=== PATIENT | male | born 1990 | race Caucasian/White ===

== ENCOUNTER 2024-09-21 08:26 | Emergency (ER) | payer SELFPAY ==
[2024-09-21] VITALS (15 sets, daily range): BP systolic 127–137; BP diastolic 92–104; PULSE 79–100; RESP 11–20; TEMP 36.5; O2SAT 95–100
--- NOTE | ~2024-09-21 | CT_ITS ---
EXAMINATION: CT brain wo con DATE: 09/21/2024 09:05 INDICATION: Dizziness with seizures TECHNIQUE: Computed tomography (CT) of the head was performed without intravenous contrast. Sagittal and coronal reconstructions were performed. The mA was adjusted according to patient size. Iterative reconstruction technique was employed. The dose-length product was 605.33 mGy-cm. COMPARISON: None FINDINGS: Large region of encephalomalacia centered at the left parietal lobe involving most of the posterior l eft frontal lobe. There is a large loculated cystic lesion with a single thin curvilinear internal se ptation filling the region of encephalomalacia. There is no evident aguilera matter lining the region of encephalomalacia to suggest schizencephaly. The cystic lesion measures 7.7 cm AP and 7.5 x 3.9 cm max imal transaxial dimensions in the coronal plane. The cystic lesion is chronic with chronic remodeling of the overlying calvarium which appears thickened with scalloped margins along the inner table. The re is a thin septation with no cerebral tissue between portions of the left lateral ventricle and the cystic lesion. No acute intracranial hemorrhage, acute infarction or abnormal extra axial fluid jann ection. There is mild ex vacuo dilation at the trigonal region of the left lateral ventricle. Ventric les are otherwise normal and symmetric. No soft tissue masses identified. The orbits, paranasal sinus es and mastoid air cells are normal. IMPRESSION: 1. No acute intracranial process. 2. 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 Correlate with clinical history. Reviewed, dictated and finalized at location A. IMPRESSION: 1. No acute intracranial process. 2. 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 Correlate with clinical history.
--- NOTE | 2024-09-21 08:29 | ED.DIZZY ---
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 The patient does not have vertigo. -- Unable to focus. His image keeps moving . no headache. No focal neuro deficits. No speech difficulty. No headache. No chest pain or shortness of breath no recent seizures noted. The patient is on Lamictal. MD elicited complaint: dizziness and lightheadedness Onset (ago): hour(s) ( 1 hour) Timing: sudden onset Severity: mild Description: lightheadedness History of similar symptoms: Yes Exacerbating factors: nothing Relieving factors: nothing Associated symptoms: denies other symptoms Related Data Allergies Allergy/AdvReac Type Severity Reaction Status Date / Time levetiracetam (From [facility]) Allergy Severe panic Verified 06/21/24 09:51 attack Review of Systems Review of Systems: All systems reviewed & are unremarkable except as noted in HPI and below Constitutional: Constitutional: Reports as per HPI and Reports no additional constitutional complaints Eyes: Eyes: Reports as per HPI and Reports no additional eye complaints Comments: unable to focus. ENT: Reports system reviewed and no additional complaints, except as documented and Reports as per HPI Cardiovascular: Cardiovascular: Reports as per HPI and Reports no additional cardiovascular complaints Respiratory: Respiratory: Reports as per HPI and Reports no additional respiratory complaints Gastrointestinal: Gastrointestinal: Reports as per HPI and Reports no additional gastrointestinal complaints Genitourinary: Genitourinary: Reports no additional male genitourinary complaints and Reports as per HPI Musculoskeletal: Musculoskeletal: Reports no additional musculoskeletal complaints and Reports as per HPI Integumentary/Breasts: Skin/Breast: Reports system reviewed and no additional complaints, except as docu and Reports as per HPI Neurologic: Reports system reviewed and no additional complaints, except as documented and Reports as per HPI Psychiatric: Psychiatric: Reports no additional psychiatric complaints and Reports as per HPI Endocrine: Endocrine: Reports no additional endocrine complaints and Reports as per HPI Hematologic/Lymphatic: Hematologic/Lymphatic: Reports no additional hematologic/lymphatic complaints and Reports as per HPI Allergic/Immunologic: Allergic/Immunologic: Reports no additional allergic/immunologic complaints and Reports as per HPI [facility] Social History Social History Smoking status: Never smoker Tobacco type: cigars Second hand tobacco smoke exposure: No Alcohol intake: current Substance use: never Do You Feel Safe in your Home?: Yes Lack of Transportation: No Lack of Food: Never True Current Housing: I Have Housing Concerned About Future Housing: No Difficulty Paying Gas/Electric Bills: No Difficulty Paying for Meds: No Currently Unemployed: No Living arrangements: alone Gender identity (if verbalized by the patient): Male Spiritual care concerns: No Exam Narrative: Not orthostatic Const: General: healthy appearing and no acute distress Nutritional Appearance: well nourished Orientation/consciousness: patient oriented x3 Limitations: no limitations HENMT: Head: normal to inspection Ears: TM's normal bilaterally Face/Nose/Sinus: Normal external nose present Face and sinus: normal facial exam Mouth: Yes Normal oral and palatal mucosa present Throat: posterior oropharynx normal Eyes: Conjunctivae: conjunctivae normal Pupils: Equal, round and reactive pupils present EOM: EOMs intact bilaterally Direct Ophthalmoscopy: no photophobia Neck: Neck: normal visual inspection, no lymphadenopathy and no meningeal signs Chest: Chest palpation & inspection: normal inspection of the chest Resp: Effort & Inspection: normal respiratory effort Auscultation: clear to auscultation bilaterally Cardio: Rate: regular rate Rhythm: regular rhythm GI: GI Palp: Yes Soft to palpation Auscultation: normal bowel sounds Other: no tenderness/ rigidity / rebound. : General: Yes no CVA tenderness Back/Spine/Pelvis: Back: no CVA tenderness Skin: General skin exam: normal color Rashes: no rashes Wounds: no wounds Neuro: General: patient oriented x3, moves all extremities, no meningeal signs and no focal motor deficits Cranial nerves: Yes Nystagmus not present Speech: normal speech Extrem: General: normal to inspection Psych: Mental Status: mental status grossly normal Affect: normal affect Attitude: cooperative Course Course Emergency Course: Dizziness/ unable to focus-- patient is not orthostatic. No EKG changes. Patient was a normal troponin. Patient has decreased sensation on the right side. No motor deficit noted. No disequilibrium /ataxia noted. CT of the head revealed chronic cystic lesion involving left parietal and left posterior frontal measuring 7.7/7.5/3 0.9 cm. Will discharge the patient and have him follow-up with his neurologist. Vital Signs Vital signs: Vital Signs Temperature 36.5 C 09/21/24 08:30 Pulse Rate 85 09/21/24 08:30 Respiratory Rate 20 09/21/24 08:30 Blood Pressure 128/104 H 09/21/24 08:30 Pulse Oximetry 99 09/21/24 08:30 Oxygen Delivery Room Air 09/21/24 08:30 Temperature 36.5 C 09/21/24 08:30 Pulse Rate 85 09/21/24 08:30 Respiratory Rate 20 09/21/24 08:30 Blood Pressure 128/104 H 09/21/24 08:30 Pulse Oximetry 99 09/21/24 08:30 Oxygen Delivery Room Air 09/21/24 08:30 MDM - Dizziness MDM Narrative Medical decision making narrative: Dizziness Differential Diagnosis Differential diagnosis: Likely benign paroxysmal positional vertigo and cerebrovascular accident Medical Records Attestation: I reviewed the patient's medical records. Lab Data Attestation: I reviewed the patient's lab results. 09/21/24 09:13 09/21/24 09:13 Labs: Lab Results 09/21/24 09/21/24 Range/Units 09:13 09:14 WBC 7.6 (4.8-10.8) K/mm3 RBC 4.86 (4.70-6.10) M/mm3 Hgb 15.5 (14.0-18.0) g/dL Hct 45.5 (40.0-54.0) % MCV 93.6 (78.0-102.0) fL MCH 31.9 H (27.0-31.0) pg MCHC 34.1 (32-36) g/dL RDW 11.6 (11.6-14.4) % Plt Count 310 (150-420) K/mm3 MPV 7.8 L (8.7-11.0) fl Immature Gran % (Auto) 0.4 H (0.0-0.0) % Neut % (Auto) 62.4 (50.0-70.0) % Lymph % (Auto) 24.6 (18.0-42.0) % [place] % (Auto) 10.5 (2.0-11.0) % Eos % (Auto) 1.4 (1.0-6.0) % Baso % (Auto) 0.7 (0.0-1.0) % Lymph # (Auto) 1.87 (1.10-4.50) K/mm3 [place] # (Auto) 0.80 (0.10-0.90) K/mm3 Eos # (Auto) 0.11 (0.02-0.50) K/mm3 Baso # (Auto) 0.05 (0.00-0.10) K/mm3 Abs Immat Gran (auto) 0.03 H (0.00-0.00) K/mm3 Absolute Neuts (auto) 4.73 (1.70-7.20) K/mm3 Absolute Nucleated RBC 0.00 (0.00-0.00) K/mm3 Nucleated RBC % 0.0 (0-0.0) % Sodium 137 (137-145) mmol/L Potassium 3.8 (3.4-5.0) mmol/L Chloride 106 (98-107) mmol/L Carbon Dioxide 26 (22-30) mmol/L Anion Gap 5 (4-12) mmol/L BUN 12 (9-20) mg/dL Creatinine 0.98 (0.7-1.3) mg/dL Estim Creat Clear Calc 108 ml/min Estimated GFR > 60 (59 - ) Glucose 94 (65-110) mg/dL Calculated Osmolality 283 L (285-295) mOsm/kg Lactic Acid 1.5 (0.4-2.0) mmol/L Calcium 8.7 (8.4-10.2) mg/dL Total Bilirubin 0.6 (0.2-1.3) mg/dL AST 59 (17-59) U/L ALT 68 H (6-50) U/L Alkaline Phosphatase 112 (38-126) U/L Troponin I < 0.012 (0.000-0.034) ng/mL Total Protein 7.2 (6.3-8.2) g/dL Albumin 4.4 (3.5-5.1) g/dL Lipase 31 (23-300) U/L TSH Pending ECG Data EKG #1: ECG completion date: 09/21/24 ECG completion time: 09:08 Interpretation: normal sinus rhythm. Normal axis. No ST elevation. Discharge Plan Discharge Clinical Impression: Dizziness Patient Disposition: Home Condition: Stable Instructions: Antibiotic Form, Dizziness (ED) Additional Instructions: follow-up with your neurologist Patient Language: Syriac Prescriptions: No Action lamotrigine [Lamictal XR] 200 mg tablet extended release 24hr 200 mg PO DAILY Qty: 360 0RF Rx Instructions: Take 3 tablets in the morning and 1 tablet in the evening Follow-up/Referrals: Maurilio Luther DO [Primary Care Provider] - Time of Disposition: 09:54
--- NOTE | 2024-09-21 08:51 | ECG_ITS ---
Test Date: 2024-09-21 09:08:30 Measurements Intervals [place] Rate: 81 P: 7 WA: 148 QRS: 53 QRSD: 104 T: 58 QT: 358 QTc: 418 Interpretive Statements SINUS RHYTHM INCOMPLETE RIGHT BUNDLE BRANCH BLOCK LOW QRS VOLTAGE IN PRECORDIAL LEADS BORDERLINE ECG No previous ECG available for comparison Electronically Signed On 09-21-2024 16:12:12 CDT by Parag Moore D.O.
[2024-09-21 09:19] LABS: Basophils Absolute Auto 0.05 K/mm3 (0.00-0.10); Basophils Percent Auto 0.7 % (0.0-1.0); Eosinophils Absolute Auto 0.11 K/mm3 (0.02-0.50); Eosinophils Percent Auto 1.4 % (1.0-6.0); Hematocrit 45.5 % (40.0-54.0); Hemoglobin 15.5 g/dL (14.0-18.0); Immature Granulocyte Absolute 0.03 K/mm3 (0.00-0.00); Immature Granulocyte Percent A 0.4 % (0.0-0.0); Lymphocytes Absolute Auto 1.87 K/mm3 (1.10-4.50); Lymphocytes Percent Auto 24.6 % (18.0-42.0); Mean Corpuscular HGB Conc 34.1 g/dL (32-36); Mean Corpuscular Hemoglobin 31.9 pg (27.0-31.0); Mean Corpuscular Volume 93.6 fL (78.0-102.0); Mean Platelet Volume 7.8 fl (8.7-11.0); Monocytes Percent Auto 10.5 % (2.0-11.0); Neutrophils Absolute Auto 4.73 K/mm3 (1.70-7.20); Neutrophils Percent Auto 62.4 % (50.0-70.0); Platelet Count Result 310 K/mm3 (150-420); Red Blood Count 4.86 M/mm3 (4.70-6.10); Red Cell Distribution Width 11.6 % (11.6-14.4); White Blood Count 7.6 K/mm3 (4.8-10.8)
[2024-09-21 09:30] LABS: Lactic Acid Reflex 1.5 mmol/L (0.4-2.0)
[2024-09-21 09:31] LABS: Alanine Aminotransferase 68 U/L (6-50); Albumin Level 4.4 g/dL (3.5-5.1); Alkaline Phosphatase 112 U/L (38-126); Anion Gap 5 mmol/L (4-12); Aspartate Amino Transferase 59 U/L (17-59); Bilirubin,Total 0.6 mg/dL (0.2-1.3); Blood Urea Nitrogen 12 mg/dL (9-20); Calcium 8.7 mg/dL (8.4-10.2); Carbon Dioxide 26 mmol/L (22-30); Chloride 106 mmol/L (98-107); Estimated CRCL calculation 108 ml/min; Estimated Glomerular Filt Rate > 60; Glucose 94 mg/dL (65-110); Lipase 31 U/L (23-300); Osmolality Calculated 283 mOsm/kg (285-295); Potassium 3.8 mmol/L (3.4-5.0); Sodium 137 mmol/L (137-145); Total Protein 7.2 g/dL (6.3-8.2)
--- NOTE | 2024-09-21 09:37 | PC.NURSE ---
Patient reports his symptoms have improved, he is ready to go home.
[2024-09-21 09:43] LABS: Troponin I < 0.012 ng/mL (0.000-0.034)
== END 2024-09-21 10:10 | disposition home or self-care (01) ==
PROVIDERS: Emergency Provider Internal Medicine Critical Care Medicine; PCP Family Medicine
DX: R42 Dizziness and giddiness (principal)
CPT/HCPCS: 36415; 70450; 80053; 83605; 83690; 84443; 84484; 85025; 93005; 99284